=== PATIENT | male | born 1970 | race Caucasian/White ===

== ENCOUNTER 2016-07-23 12:11 | Emergency (ER) | payer BC ==
[~2016-07-23] VITALS: Ht 190.5 cm; Wt 122.4 kg
[~2016-07-23 12:11] MED LIST: BECL1AER5 NAE; CETI10TA84 PO; EPP3 IM; FLUT0.15 NAE; RIZA10TA18 PO; TOPI50TA16 PO
[2016-07-23 12:14] VITALS: TEMP 36.9; Ht 190.5 cm; Wt 122.4 kg
[2016-07-23] MEDS ORDERED: SODIUM CHLORIDE 0.9% 1000ML 1,000 ML IV STA (12:38)
[2016-07-23] MEDS ORDERED: HYDROmorphone INJ 1 MG/ML SYR IV STA ×2 (12:38→14:16)
[2016-07-23] MEDS ORDERED: LORAZEPAM 2 MG/ML 1 ML VIAL IV STA (12:38)
[2016-07-23] MEDS ORDERED: PROCHLORPERAZINE 5 MG/ML 2 ML VIAL IM STA (12:38)
[2016-07-23] MEDS ORDERED: DEXAMETHASONE SOD INJ 10 MG/ML VIAL IV ONE (12:45)
[2016-07-23] MEDS ORDERED: PROCHLORPERAZINE 5 MG/ML 2 ML VIAL IV STA (13:26)
[2016-07-23] MEDS ORDERED: TOPI25TA10 PO (13:47)
[2016-07-23] MEDS ORDERED: ONDANSETRON INJ 2 MG/ML 2 ML VIAL IV STA (14:16)
[2016-07-23] MEDS ORDERED: OXYC1TAB3 PO (15:40)
[2016-07-23] MEDS ORDERED: ONDA8TAB13 SL (15:40)
[2016-07-23 16:17] VITALS: BP 140/88; PULSE 70; O2SAT 95
--- NOTE | 2016-07-23 16:23 | EMERGENCY ROOM VISIT NOTE ---
History First contact with patient: 12:27 Chief Complaint: HEADACHE Stated Complaint: MIGRAINE/CLUSTER HEADACHE History of Present Illness The patient is a 46 year old male who presents to the Emergency Room with complaints of a bank cluster headache that he has not been able to shake. The patient has had this headache for the past 3.5 weeks. The patient has a known history of cluster headaches. He used to be under the management of Dr. Kim, but since his halfway, has been following with his PCP, Dr. Vidales. The patient is currently taking Topamax regularly. He also takes Maxalt and Phenergan as needed when he gets headaches. He took Maxalt at 6 AM and again at 9 AM this morning, along with Phenergan. He has had persistent vomiting. He describes his headache as a right retro-orbital pain and right facial discomfort with sinus congestion. This is typical with his cluster headaches. He was seen at Dr. Vidales's office yesterday and treated with O2 and IM Toradol without relief. His Topamax was also increased to 25 mg every morning, and 50 mg daily at bedtime. The patient denies any risk for acute sinusitis, intracranial bleed or carbon monoxide poisoning. He rates his discomfort a 10 out of 10. The patient reports that this headache is similar to all prior cluster headaches, and is not the worse headache of his life. Review of Systems HEENT: Denies dizziness, visual problems, hearing loss, tinnitus. Denies difficulty swallowing or oral lesions. PULMONARY: Denies cough, shortness of breath, sputum production or hemoptysis. CARDIOVASCULAR: Denies chest pain, palpitations, dyspnea on exertion, orthopnea or peripheral edema. GASTROINTESTINAL: Denies diarrhea, constipation, nausea, vomiting, or abdominal pain. GENITOURINARY: Denies dysuria, frequency, urgency or nocturia. NEUROLOGIC: Denies history of epilepsy, CVA, TIA or chronic headaches. MUSCULOSKELETAL: Denies history of joint tenderness/swelling. SKIN: Denies rashes or lesions. PSYCHIATRIC: Denies history of depression or mental illness. ENDOCRINE: Denies history of diabetes or thyroid disorders. Past Medical/Surgical History Medical Problems: (1) Cluster headaches (2) Diabetes (3) Migraines Surgical Problems: (1) Hx of appendectomy (2) Hx of sinus surgery Family History Diabetes mellitus FHx: cancer FHx: heart disease Hypertension Social History Smoking Status: Never Smoker Alcohol Use: none Marital Status: single Occupation Status: employed Current/Historical Medications Scheduled Epinephrine (Epipen *), 0.3 MG IM UD Ondansetron Odt (Zofran Odt), 8 MG SL Q6H Topiramate (Topamax), 50 MG PO HS Topiramate (Topamax), 25 MG PO QAM Scheduled PRN Beclomethasone Dipropionate (N (Qnasl), 1 SPRY MO DAILY PRN for CONGESTION Cetirizine (Zyrtec), 10 MG PO DAILY PRN for ALLERGIC REACTION Fluticasone Propionate (Nasal) (Flonase Allergy Relief), 1 SPRAY MO DAILY PRN for CONGESTION Oxycodone Ir (Roxicodone Ir), 1-2 TAB PO Q4H PRN for Pain Rizatriptan Benzoate (Maxalt), 10 MG PO UD PRN for Migraine Allergies Coded Allergies: BEE STING (Verified Allergy, Severe, ?, 07/23/16) Fish Oil (Verified Allergy, Severe, 07/23/16) Penicillins (Verified Allergy, Mild, 07/23/16) Sulfa Drugs (Verified Allergy, Mild, 07/23/16) Physical Exam Vital Signs Date Time Temp Pulse Resp B/P Pulse Ox O2 Delivery O2 Flow Rate FiO2 07/23/16 16:17 70 14 140/88 95 Room Air 07/23/16 15:54 88 17 140/88 98 Room Air 07/23/16 15:02 72 17 124/81 94 Room Air 07/23/16 14:34 65 18 141/93 95 Room Air 07/23/16 13:08 Room Air 07/23/16 12:14 36.9 65 18 175/100 94 Room Air Physical Exam CONSTITUTIONAL: Healthy and well nourished. Alert and oriented X 3 with positive affect. Patient appears in moderately severe discomfort, and is holding an emesis bag. HEENT: Normocephalic, atraumatic. Pupils equal, round and reactive. Ears and nares are clear. Patient is photophobic, precluding funduscopic exam. NECK: Full active range of motion without discomfort. No JVD or carotid bruits. RESPIRATORY: Clear to auscultation bilaterally with no wheezing, crackles, rhonchi or stridor. CARDIOVASCULAR: Regular rate and rhythm with no murmurs, rubs or gallops. GASTROINTESTINAL: Bowel sounds present in all quadrants. Soft and nontender to palpation. MUSCULOSKELETAL: Full range of motion of all joints without discomfort. INTEGUMENTARY: No rash or other significant dermatologic conditions noted. HEMATOLOGIC: No ecchymosis or petechiae. NEUROLOGIC: Cranial nerves II-XII grossly intact. No focal neurologic deficits noted. Normal finger to nose test. Negative pronator drift. Normal fast alternating hand movements. Medical Decision & Procedures Medications Administered Medications (Trade) Dose Ordered Sig/Jenny Route Start Time Stop Time Status Last Admin Dose Admin Sodium Chloride (Nss 1000ml) 1,000 ml @ 999 mls/hr Q1H1M STAT IV 07/23/16 12:38 07/23/16 13:38 DC 07/23/16 13:10 999 MLS/HR Hydromorphone HCl (Dilaudid Inj) 1 mg NOW STAT IV 07/23/16 12:38 07/23/16 12:40 DC 07/23/16 13:11 1 MG Dexamethasone Sodium Phosphate (Decadron Inj) 10 mg NOW ONCE IV 07/23/16 12:45 07/23/16 12:46 DC 07/23/16 13:09 10 MG Lorazepam (Ativan Inj) 1 mg NOW STAT IV 07/23/16 12:38 07/23/16 12:40 DC 07/23/16 13:09 1 MG Prochlorperazine Edisylate (Compazine Inj) 10 mg NOW STAT IV 07/23/16 13:26 07/23/16 13:28 DC 07/23/16 01:30 10 MG Ondansetron HCl (Zofran Inj) 4 mg NOW STAT IV 07/23/16 14:16 07/23/16 14:17 DC 07/23/16 14:31 4 MG Hydromorphone HCl (Dilaudid Inj) 1 mg NOW STAT IV 07/23/16 14:16 07/23/16 14:17 DC 07/23/16 14:32 1 MG Procedure 1. IV hydration: Normal saline 1 L bolus 2. IV medications: The patient initially received Dilaudid 1 mg, Decadron 10 mg , Ativan 1 mg and Compazine 10 mg IVP. With persistent nausea and pain, the patient was administered an additional Dilaudid 1 mg and Zofran 4 mg IVP. ED Course Patient history and physical exam were performed. Nurse's notes were reviewed. Vital signs were reviewed, showing a blood pressure 175/100. O2 saturation is 94% on room air. The patient is afebrile and not tachycardic. I also reviewed a portion of prior medical records. The patient has a sporadic history of visits for migraines and cluster headaches. He usually requires parenteral treatment. IV access was established, and labs were drawn. The patient was hydrated with a liter normal saline, and received IV medications as discussed in the previous Procedure section. O2 via nonrebreather at 10 L/m was also administered. After the first waves of IV medications: The patient reported persistent moderate nausea and headache rated an 8 out of 10. He was administered additional medication as discussed in the previous Procedure section. This further reduced his headache to a 4 out of 10, and the patient requested discharge home. It is noted that the patient's blood pressure did improve, likely a pain response. The patient was instructed to rest and remain well-hydrated. He was provided prescriptions for Zofran 8 mg ODT and OxyIR 5 mg. He was encouraged to follow- up with his PCP for further management, returning to the emergency department for any rebound headache. The patient was happy with plan care, and voiced understanding of all discharge instructions. Medical Decision The patient has a prior history of cluster headaches. The patient reports that his headache feels the same, and is not the worse headache of his life. Given patient history and physical exam findings, I do not suspect intracranial bleed , meningitis, CVA/TIA, thromboembolic event or carbon monoxide poisoning. [place] Drug Monitoring Program Search Results: patient reviewed within database, no issues identified Impression Primary Impression: Cluster headaches Departure Information Prescriptions Oxycodone Ir (Roxicodone Ir) 5 Mg Tab 1-2 TAB PO Q4H Y for Pain, #15 TAB For Initial Treatment Prov: Armando Spencer PA 07/23/16 Ondansetron Odt (ZOFRAN ODT) 8 Mg Tab 8 MG SL Q6H, #20 TAB Prov: Armando Spencer PA 07/23/16 Referrals Caitlin Vidales D.O. (PCP) Patient Instructions My [facility] Problem Qualifiers Primary Impression: Cluster headaches Headache chronicity pattern: episodic headache Intractability: not intractable Qualified Codes: G44.019 - Episodic cluster headache, not intractable
== END 2016-07-23 16:22 | disposition home or self-care (01) ==
LOC: C.EDB 12:13
DX: G44.019 Episodic cluster headache, not intractable (principal); E11.9 Type 2 diabetes mellitus without complications; Z83.3 Family history of diabetes mellitus; Z82.49 Family history of ischemic heart disease and other diseases of the circulatory system; Z80.9 Family history of malignant neoplasm, unspecified; Z79.899 Other long term (current) drug therapy

== ENCOUNTER → 2016-09-25 | Outpatient (CLI) | payer BC ==
[~2016-09-25] MED LIST changes: +OXYC1TAB3 PO; +TOPI25TA10 PO
--- NOTE | 2016-09-25 09:13 | DIAGNOSTIC IMAGING REPORT ---
Bladder ultrasound (BLADE) RETROPERITONEAL LTD CLINICAL HISTORY: PELVIC/BLADDER PAIN TECHNIQUE: Ultrasound COMPARISON STUDY: None FINDINGS: Bladder is unremarkable in overall configuration. No major filling defects. No evidence for abnormal pelvic mass or collection mild central criteria. IMPRESSION: Negative study Electronically signed by: Vinnie Foy M.D. 09/25/2016 9:11 AM Dictated Date/Time: 09/25/2016 9:10 AM
== END | disposition home or self-care (01) ==
LOC: C.ULTR 08:10
PROVIDERS: ATTEND Nurse Practitioner Family
DX: R39.89 Other symptoms and signs involving the genitourinary system (principal); R10.2 Pelvic and perineal pain; N41.0 Acute prostatitis

== ENCOUNTER 2017-02-22 12:14 | Emergency (ER) | payer BC ==
[~2017-02-22] VITALS: Ht 190.5 cm; Wt 115.3 kg
[~2017-02-22 12:14] MED LIST changes: -OXYC1TAB3 PO
[2017-02-22 12:16] VITALS: TEMP 36.7; Ht 190.5 cm; Wt 115.3 kg
[2017-02-22] MEDS ORDERED: ASPI-390 PO (12:53)
[2017-02-22] MEDS ORDERED: KETOROLAC TROMETHAMINE 30 MG/ML VIAL IV STA (13:02)
[2017-02-22] MEDS ORDERED: DiphenhydrAMINE HCL 50 MG/ML VIAL IV STA (13:02)
[2017-02-22] MEDS ORDERED: DEXAMETHASONE SOD INJ 4 MG/ML VIAL IV STA (13:02)
[2017-02-22] MEDS ORDERED: PROCHLORPERAZINE 5 MG/ML 2 ML VIAL IV STA (13:02)
[2017-02-22] MEDS ORDERED: SODIUM CHLORIDE 0.9% 1000ML 1,000 ML IV STA (13:02)
[2017-02-22] MEDS ORDERED: HYDROmorphone INJ 1 MG/ML SYR IV STA (14:11)
[2017-02-22] MEDS ORDERED: ONDANSETRON INJ 2 MG/ML 2 ML VIAL IV STA (14:11)
--- NOTE | 2017-02-22 15:00 | EMERGENCY ROOM VISIT NOTE ---
ED Visit Note First contact with patient: 12:24 CHIEF COMPLAINT: Migraine headache on and off times one week HISTORY OF PRESENT ILLNESS: Patient is a 46-year-old white male with past medical history significant for migraine headaches/cluster headaches who presents to the emergency department after experiencing severe headaches for one week. He states his symptoms started last Wednesday. He has had severe headaches daily for the last week, except for Wednesday. Location of the headache his alternated between being right and left-sided, frontal and occipital. He presently is complaining of a right-sided headache, behind the right eye and in the right evangelical radiating into the jaw. He reports that it is a constant, throbbing headache. He presently rates his discomfort a 9.5/10. He has multiple medications prescribed by his primary care provider, who manages his headaches, and he has taken them without relief. He has tried Maxalt, ice and Excedrin Migraine. He states the last time that he had to come to the emergency department for headache was over a year ago. He was evaluated by pain management and Botox migraine protocol was discussed, however the patient decided against it and is sticking with medical management by his PCP. He has been thoroughly evaluated for his migraines in the past with imaging studies including CT scans and MRIs which have all been normal. He denies any difficulty with balance, speech or coordination. He has not been ill recently with any cold, fever or upper respiratory symptoms. He has been nauseous but has not vomited. He denies any weakness or numbness of the extremities. No recent trauma to the head and no neck pain. This is not the worst headache of the life and is similar to her prior migraine phenomenon. REVIEW OF SYSTEMS: Review of systems as per HPI. All other systems reviewed were negative. 10 systems reviewed. PMH: Electronic medical records are reviewed and summarized as above/below. See Problem List. SOCIAL HISTORY: Patient lives at home by himself. Nonsmoker, denies alcohol use. PHYSICAL EXAM: Vital Signs: Reviewed Nurse's notes. General Appearance: Patient is a well-appearing 46-year-old white male who is awake and alert and laying in a darkened room in mild distress due to his headache. Eyes: Pupils equal round reactive to light extraocular muscles are intact, no proptosis, mild photophobia ENT: Oropharynx is clear, mucous membranes are moist, tympanic membranes are clear bilaterally, no sinus or dental tenderness Neck: Supple, no cervical lymphadenopathy, no meningismus Heart: Regular rate and rhythm, S1 and S2 Lungs: Clear to auscultation bilaterally, no wheezes Rales or rhonchi, no increased work of breathing Abdomen: Soft nontender nondistended. Normal active bowel sounds. No rebound. No guarding. Back: No midline tenderness to palpation. : No CVA tenderness to palpation. Skin: Warm, no diaphoresis, no rashes. Extremities: No cyanosis, clubbing, or edema Neurologic: Patient is awake alert, and oriented x 3. Cranial nerves 2-12 are grossly intact. Motor 5 out of 5 strength bilateral upper extremities and lower extremities. No gross sensory deficits. Reflexes are 2+ throughout. EMERGENCY DEPARTMENT COURSE: The patient was seen and evaluated as above. His old records were reviewed. IV lock was initiated. He was hydrated with a liter bolus of normal saline solution. He was medicated with Toradol 30 mg, Decadron 10 mg, Compazine 10 mg and Benadryl 25 mg IV. He was given an ice pack and room lights were dimmed. He was reassessed after about 30-45 minutes, and only reported slight improvement in his headache, rating it an 8/10. At that point he was given Zofran 4 mg and Dilaudid 1 mg IV. He was later reassessed and rated his headache a 4/10, and felt well enough to be discharged home. Patient has a long-standing history of migraine headaches, and states that this feels similar to his normal migraine. His physical exam is not consistent with meningitis or encephalitis. I felt that further workup was indicated at this time. Patient does report that he often benefits from ongoing steroid to break his migraine, and has done well with a Medrol Dosepak. He was prescribed one. He was advised to follow-up with his primary care provider this week for further care and management. He was discharged to home with a coworker driving. He rated his discomfort a 4/10 at discharge. Blood pressure improved with pain medications, and I suspect that he high blood pressure was more of a pain response/situational. Medication reconciliation: I attest that I have personally reviewed the patient' s current medication list. Differential includes: acute intracranial bleed, meningitis, encephalitis, mass or mass effect, sinusitis, infection, migraine, tumor, headache, temporal arteritis and carbon monoxide exposure. Problem List Medical Problems: (1) Back pain Status: Resolved (2) Cluster headaches Status: Chronic (3) Diabetes Status: Chronic (4) Headache Status: Resolved (5) Migraine Status: Resolved (6) Migraine Status: Resolved (7) Migraines Status: Chronic (8) Sprain of left shoulder Status: Resolved Surgical Problems: (1) Hx of appendectomy Status: Resolved (2) Hx of sinus surgery Status: Resolved Current/Historical Medications Scheduled Methylprednisolone (Medrol Dosepak), 0 PO DAILY Topiramate (Topamax), 50 MG PO HS Topiramate (Topamax), 25 MG PO QAM Scheduled PRN [id number] (Excedrin Migraine), 1 TAB PO UD PRN for Migraine Cetirizine (Zyrtec), 10 MG PO DAILY PRN for ALLERGIC REACTION Rizatriptan Benzoate (Maxalt), 10 MG PO UD PRN for Migraine Allergies Coded Allergies: BEE STING (Verified Allergy, Severe, ?, 02/22/17) Fish Oil (Verified Allergy, Severe, 02/22/17) Penicillins (Verified Allergy, Mild, 02/22/17) Sulfa Drugs (Verified Allergy, Mild, 02/22/17) Vital Signs Date Time Temp Pulse Resp B/P (MAP) Pulse Ox O2 Delivery O2 Flow Rate FiO2 02/22/17 15:40 88 16 120/93 96 02/22/17 14:39 69 18 118/92 96 Room Air 02/22/17 13:36 84 17 142/93 96 Room Air 02/22/17 13:35 Room Air 02/22/17 12:16 36.7 84 18 166/107 97 Room Air Medications Administered Medications (Trade) Dose Ordered Sig/Jenny Route Start Time Stop Time Status Last Admin Dose Admin Ketorolac Tromethamine (Toradol Inj) 30 mg NOW STAT IV 02/22/17 13:02 02/22/17 13:04 DC 02/22/17 13:31 30 MG Dexamethasone Sodium Phosphate (Decadron Inj) 10 mg NOW STAT IV 02/22/17 13:02 02/22/17 13:04 DC 02/22/17 13:33 10 MG Prochlorperazine Edisylate (Compazine Inj) 10 mg NOW STAT IV 02/22/17 13:02 02/22/17 13:04 DC 02/22/17 13:32 10 MG Diphenhydramine HCl (Benadryl Inj) 25 mg NOW STAT IV 02/22/17 13:02 02/22/17 13:04 DC 02/22/17 13:34 25 MG Sodium Chloride 1,000 ml @ 999 mls/hr Q1H1M STAT IV 02/22/17 13:02 02/22/17 14:02 DC 02/22/17 13:34 999 MLS/HR Hydromorphone HCl (Dilaudid Inj) 1 mg NOW STAT IV 02/22/17 14:11 02/22/17 14:13 DC 02/22/17 14:38 1 MG Ondansetron HCl (Zofran Inj) 4 mg NOW STAT IV 02/22/17 14:11 02/22/17 14:13 DC 02/22/17 14:39 4 MG Departure Information Impression Primary Impression: Headache Prescriptions Methylprednisolone (MEDROL DOSEPAK) 4 Mg Jossue 0 PO DAILY, #1 PKT ONCE DAILY DIRECTED. Prov: Selena Hawkins PA 02/22/17 Referrals Caitlin Vidales D.O. (PCP) Patient Instructions My [facility] Additional Instructions DO NOT drive, drink alcohol, operate machinery, or perform dangerous activities today. You were given medications in the ER that can affect your ability to safely function or operate a vehicle. Rest today in a quiet, peaceful, dark environment and get a full 8-10 hrs of sleep tonight. Avoid loud noises, smoke/smoking, alcohol, bright lights, stress, or physical exertion today to minimize the chance the headache may return. Continue current medications. Medrol Dosepak: Once daily until the prescription is finished. It is best to take this earlier in the day as some patients note occasional difficulty falling asleep when taken in the late evening. Ibuprofen(Motrin, Advil) may be used for fever or pain. Use 600mg every six hours as needed. Take with food. Avoid using more than 2400mg in a 24 hour period. Do not use 2400mg per day for more than three consecutive days without physician direction. Prolonged inappropriate use can lead to stomach upset or ulcers. (AND/OR) Acetaminophen(Tylenol) may be used for fever or pain. Use 1000mg every six hours as needed. Avoid using more than 3000mg in a 24 hour period. Return to the ER for passing out, worsening headache, vision problems, neck stiffness/pain, fevers, vomiting, worsening of your condition, or as needed. Follow up with your primary physician in 2-3 days for a recheck of your current condition.
[2017-02-22] MEDS ORDERED: METH4PAK PO (15:04)
[2017-02-22 15:40] VITALS: BP 120/93; PULSE 88; O2SAT 96
== END 2017-02-22 15:20 | disposition home or self-care (01) ==
LOC: C.EDB 12:15 → C.EDC 15:20
DX: R51 Headache (principal); E11.9 Type 2 diabetes mellitus without complications; Z79.899 Other long term (current) drug therapy